=== PATIENT | female | born 1965 ===

== ENCOUNTER → 2024-09-17 | Outpatient (CLI) | payer MEDICARE, OTHER ==
[~2024-09-17] MED LIST: CYCL10 PO; HYDACE5 PO; MAXIDE; NAPR500 PO; PENVK500 PO; PIOG15; VERA240ERB; VERAPAMIL
== END ==
LOC: LAB 09:42 → LAB SHORT 09:42
DX: D48.5 Neoplasm of uncertain behavior of skin (principal)
CPT/HCPCS: 88341; 88342